=== PATIENT | born 1950 | race Caucasian/White ===

== ENCOUNTER 2024-05-03 09:55 | Outpatient (CLI) | payer MEDICARE, SELFPAY ==
[2024-05-03 13:24] LABS: Basophils Absolute Auto 0.1 K/mm3 (0.0-0.1); Basophils Percent Auto 0.7 % (0.2-1.2); Eosinophils Absolute Auto 0.1 K/mm3 (0-0.3); Eosinophils Percent Auto 1.4 % (0-4.4); Hematocrit 35.9 % (37.0-52.0); Hemoglobin 12.1 g/dL (12.0-18.0); Immature Granulocyte Absolute 0.02 K/mm3 (0.00-0.031); Immature Granulocyte Percent A 0.3 % (0-0.5); Lymphocytes Absolute Auto 2.94 K/mm3 (0.9-3.2); Lymphocytes Percent Auto 40.7 % (18.3-44.2); Mean Corpuscular HGB Conc 33.7 g/dl (32-36); Mean Corpuscular Hemoglobin 31.2 pg (26-34); Mean Corpuscular Volume 92.5 fl (80-100); Mean Platelet Volume 11.4 fl (7.4-10.4); Monocytes Absolute Auto 0.6 K/mm3 (0.1-0.6); Monocytes Percent Auto 8.6 % (2.6-8.5); Neutrophils Absolute Auto 3.5 K/mm3 (1.3-6.7); Neutrophils Percent Auto 48.3 % (45.5-73.1); Platelet Count Result 158 k/mm3 (150-375); Red Blood Count 3.88 M/mm3 (4.2-6.2); Red Cell Distribution Width 11.9 % (11.5-14.5); White Blood Count 7.2 K/mm3 (4.5-10.0)
[2024-05-03 21:49] LABS: Alanine Aminotransferase 29 U/L (6-50); Albumin Level 4.1 g/dL (3.5-5.1); Alkaline Phosphatase 110 U/L (38-126); Anion Gap 8 mmol/L (4-12); Aspartate Amino Transferase 47 U/L (17-59); Bilirubin,Total 0.9 mg/dL (0.2-1.3); Blood Urea Nitrogen 26 mg/dL (7-20); Calcium 9.2 mg/dL (8.4-10.2); Carbon Dioxide 33 mmol/L (22-30); Chloride 100 mmol/L (96-107); Cholesterol 166 mg/dL (0-200); Estimated Glomerular Filt Rate 35; Glucose 100 mg/dL (65-110); HDL Direct 50 mg/dL; Potassium 3.8 mmol/L (3.4-5.0); Sodium 141 mmol/L (137-145); Triglycerides 80 mg/dL (<150)
[2024-05-03 21:59] LABS: LDL Cholesterol Direct 80 mg/dL
[2024-05-03 22:18] LABS: Prostate Specific Antigen 0.8 ng/mL
== END 2024-05-03 09:56 | disposition home or self-care (01) ==
LOC: ANHGOSHLAB 09:57
PROVIDERS: PCP Nurse Practitioner; Visit Provider Nurse Practitioner
DX: E78.5 Hyperlipidemia, unspecified (principal); I10 Essential (primary) hypertension; Z13.29 Encounter for screening for other suspected endocrine disorder; Z13.220 Encounter for screening for lipoid disorders; Z12.5 Encounter for screening for malignant neoplasm of prostate
CPT/HCPCS: 36415; 80053; 80061; 84153; 85025; G0103

== ENCOUNTER 2024-07-12 11:05 | Outpatient (CLI) | payer MEDICARE, SELFPAY ==
--- NOTE | 2024-07-12 11:26 | EST_ITS ---
Patient Info Name: Noe Webber Age: 73 years : 1950 Gender: Other Ht: 68 in Wt: 200 lbs BSA: 2.11 m2 HR: 79 bpm BP: 127 / 80 mmHg Exam Date: 07/12/2024 11:26 AM Patient Status: unknown Admit Date: 07/12/2024 Exam Type: CA stress test treadmill A treadmill exercise stress test was performed. Staff Attending Provider: Zahraa Fink Exercise Technologist: Iliana Ashford Exercise Physician: Juan Antonio Shaw DO Summary 1. 1. Negative Homero exercise stress test for ischemic ST changes by ECG criteria. 2. 2. Good functional capacity, achieving 7 METS of workload. 3. 3. Appropriate HR response to exercise. 4. 4. Appropriate HR recovery at 1 minute post exercise. 5. 5. No imaging with stress testing. 6. 6. Patient informed of the above results. Protocol: Homero Stress ECG Details Stage: REST Duration (min): 0 min : 51 sec Speed (mph): 0.0 Grade (%): 0 HR (bpm): 79 SBP (mmHg): 127 DBP (mmHg): 80 METS: --- Stage: REST Duration (min): 2 min : 49 sec Speed (mph): 0.0 Grade (%): 0 HR (bpm): 91 SBP (mmHg): 127 DBP (mmHg): 80 METS: --- Stage: STAGE 1 Duration (min): 1 min : 0 sec Speed (mph): 1.7 Grade (%): 10 HR (bpm): 103 SBP (mmHg): 127 DBP (mmHg): 80 METS: --- Stage: STAGE 1 Duration (min): 2 min : 0 sec Speed (mph): 1.7 Grade (%): 10 HR (bpm): 116 SBP (mmHg): 127 DBP (mmHg): 80 METS: --- Stage: STAGE 1 Duration (min): 3 min : 0 sec Speed (mph): 1.7 Grade (%): 10 HR (bpm): 115 SBP (mmHg): 143 DBP (mmHg): 64 METS: --- Stage: STAGE 2 Duration (min): 1 min : 0 sec Speed (mph): 2.5 Grade (%): 12 HR (bpm): 119 SBP (mmHg): 143 DBP (mmHg): 64 METS: --- Stage: STAGE 2 Duration (min): 2 min : 0 sec Speed (mph): 2.5 Grade (%): 12 HR (bpm): 129 SBP (mmHg): 167 DBP (mmHg): 64 METS: --- Stage: STAGE 2 Duration (min): 3 min : 0 sec Speed (mph): 2.5 Grade (%): 12 HR (bpm): 125 SBP (mmHg): 167 DBP (mmHg): 64 METS: --- Stage: RECOVERY Duration (min): 0 min : 59 sec Speed (mph): 0.0 Grade (%): 0 HR (bpm): 123 SBP (mmHg): 155 DBP (mmHg): 62 METS: --- Stage: RECOVERY Duration (min): 1 min : 59 sec Speed (mph): 0.0 Grade (%): 0 HR (bpm): 105 SBP (mmHg): 155 DBP (mmHg): 62 METS: --- Stage: RECOVERY Duration (min): 2 min : 59 sec Speed (mph): 0.0 Grade (%): 0 HR (bpm): 99 SBP (mmHg): 152 DBP (mmHg): 74 METS: --- Stage: RECOVERY Duration (min): 3 min : 4 sec Speed (mph): 0.0 Grade (%): 0 HR (bpm): 98 SBP (mmHg): 152 DBP (mmHg): 74 METS: --- Rest HR: 91 bpm Peak HR: 135 bpm Rest Sys BP: 127 mmHg Peak Sys BP: 167 mmHg Max Pred HR: 145 bpm % Max Pred HR: 93 % Target HR: 123 bpm Max RPP: 22,545 bpm*mmHg Taylor Score: 3 Termination Reason: Reached target heart rate or workload Cardiac Symptoms: Shortness of breath Max ST Seg Deviation: -0.70 mm Total Time: 6 min : 0 sec Rest Rodriguez BP: 80 mmHg Peak Rodriguez BP: 64 mmHg Angina Score: None Total METS: 7.1 Resting ECG Sinus rhythm. Stress ECG No ST changes. Arrhythmias None. Report Signatures
--- OUTSIDE RECORDS SUMMARY | 2024-07-12 11:30 | XMS_ITS ---
Author Organization [facility] Address [address] [place] [address] Care Team Providers Care Network Project Manager Name Role Phone Blade NEWSOME, Isi Primary Care Provider Farhad Larsen REASON FOR VISIT DAC Hx Colon Polyps Medications Medication SIG (Take, Route, Frequency, Duration) Notes Start Date End Date Status amLODIPine Besylate 2.5 MG 1 tablet Orally Once a day; Duration: 30 day(s) 06/06/2022 Active Omeprazole 20 MG 1 capsule 30 minutes before morning meal Orally Once a day; Duration: 30 day(s) 06/06/2022 Active hydroCHLOROthiazide 12.5 MG 1 capsule in the morning Orally Once a day; Duration: 30 day(s) 06/06/2022 Active Atorvastatin Calcium 20 MG Oral once a day Prescriber Name: RAGHU FRANKS 10/11/2018 Active Famotidine 20 MG 1 tablet at bedtime as needed Orally Once a day; Duration: 30 day(s) 06/06/2022 Active escitalopram 20mg Oral Prescriber Nam e: RAGHU FRANKS *[facility]* 10/11/2018 Active Encounters Encounter Location Date Provider Diagnosis [address] [address] 08/03/2023 Farhad Mc Plan Of Treatment No Information Progress Notes * Noe MILAN HDOB:[birth year] (73 yo M)Acc No.[id number]:08/03/2023 Procedure Note Patient: Noe Lynn Provider: Tal Mc MD :1950 A ge:72 Y S ex:Male Date:08/03/2023 Address:[address] [place], [place] [id number] Pcp:Isi michel MD Subjective: * Chief Complaints: * D AC Hx Colon Polyps * Medications: T akingescitalopram 20mg Tablet Oral , Notes to Pharmacist: Prescriber Name: RAGHU FRANKS *Reorder from [facility] for eRx and Interaction Alerts*Atorvastatin Calcium 20 MG Tablet Oral once a day , Notes to Pharmacist: Prescriber Name: RAGHU FRANKShydroCHLOROthiazide 12.5 MG Capsule 1 capsule in the morning Orally Once a day Famotidine 20 MG Tablet 1 tablet at bedtime as needed Orally Once a day amLODIPine Besylate 2.5 MG Tablet 1 tablet Orally Once a day Omeprazole 20 MG Capsule Delayed Release 1 capsule 30 minutes before morning meal Orally Once a day Taking escitalopram 20mg Tablet Oral , Notes to Pharmacist: Prescriber Name: RAGHU FRANKS *Reorder from [facility] for eRx and Interaction Alerts*Taking Atorvastatin Calcium 20 MG Tablet Oral once a day , Notes to Pharmacist: Prescriber Name: RAGHU FRANKSAna hydroCHLOROthiazide 12.5 MG Capsule 1 capsule in the morning Orally Once a day Taking Famotidine 20 MG Tablet 1 tablet at bedtime as needed Orally Once a day Taking amLODIPine Besylate 2.5 MG Tablet 1 tablet Orally Once a day Taking Omeprazole 20 MG Capsule Delayed Release 1 capsule 30 minutes before morning meal Orally Once a day Billing Information: * Procedure Codes: * Electronic signature of Jorge L Mc MD on 07/12/2024 at 12:30 PM EDT Sign off status: Pending * Provider: Tal Mc MD Date: 08/03/2023 Generated for Juan corona/Avani/Mamta on: 07/12/2024 12:30 PM EDT
--- OUTSIDE RECORDS SUMMARY | 2024-07-12 11:30 | XMS_ITS | Patient Health Record ---
Author Organization [facility] Address [address] [address] Care Team Providers Care Sailing Instructor Name Role Phone Blade NEWSOME, Isi Primary Care Provider Farhad Larsen Unavailable Reason For Referral Reason colon Diagnosis 1 History of colon manoj yps (Z86.010) Referral Organization [facility] Referring Provider First Name Tay white Referring Provider Last Name Alexandro Referring Provider Speciality Gastroente rology Referred Organization [facility] Referred Provider [facility] Referred Address [address] [place], [place],[address], Referred Provider Specialty Single Speci alty Group Procedure 1 Colonoscopy w/lesion removal (81940) General Notes Jennifer tam 07/18/2023 02:35:07 AM >[facility];DOS:08/03/2023,Medicare Eff:03/02/2023;DED: $240/0(Rem)OV/PROF/FAC 80%,no auth/ref req;Sec,[employer] -Eff:08/30/2013; called@ [phone] s/w Lusiana As per rep ;plan is active ;No auth or No referral is required and collect: Professional charge:$0,Facility charge:$0,Anesthesia $0;Total Charges: $0,.../PB Referral Priority Routine Medications Medication SIG (Take, Route, Frequency, Duration) Notes Start Date End Date Status amLODIPine Besylate 2.5 MG 1 tablet Orally Once a day; Duration: 30 day(s) 06/06/2022 Active Omeprazole 20 MG 1 capsule 30 minutes before morning meal Orally Once a day; Duration: 30 day(s) 06/06/2022 Active escitalopram 20mg Oral Prescriber Nam e: RAGHU FRANKS *Reorder from [facility] for eRx and Interaction Alerts* 10/11/2018 Active hydroCHLOROthiazide 12.5 MG 1 capsule in the morning Orally Once a day; Duration: 30 day(s) 06/06/2022 Active Atorvastatin Calcium 20 MG Oral once a day Prescriber Name: RAGHU FRANKS 10/11/2018 Active Famotidine 20 MG 1 tablet at bedtime as needed Orally Once a day; Duration: 30 day(s) 06/06/2022 Active Immunizations Vaccine Route Administration Date Status Comme nts COVID19 Unknown 06/18/2020 Administered Status:Preli minary ,Reason:Given or N/A Influenza (split), 3 yrs and above Unknown 11/01/2019 Administered Status:Complete ,Reason:Given or N/A Pneumococcal polysaccharide PPV23 Unknown 03/02/2014 Administered Status:Comp lete ,Reason:Given or N/A Social History Social History Additional Details Category Social Info Options Details Migrated Social History Migrated Social History Problem Title : Alcohol use, Problem Comment : 05/07/2020: Currently drinks 7 or less drinks per week., Problem Status : Active,, Problem Title : Caffeine use, Problem Comment : Drinks 3-5 caffeinated beverages per day., Problem Status : Active,, Problem Title : HIV risk factors, Problem Comment : Has never engaged in high risk behavior for STDs., Problem Status : Active,, Problem Title : Illicit drug use, Problem Comment : Never used IV drugs or other recreational drugs., Problem Status : Active,, Problem Title : Living situation, Problem Comment : does not live alone, Problem Status : Active,, Problem Title : Tobacco use, Problem Comment : 05/07/2020: Never used other tobacco products., Problem Status : Active, Attribute Title : Never smoker Problems Problem Type SNOMED Code ICD Code Onset Dates Problem Status W/U Status Risk Notes Problem Abdominal pain (25904597) Unspecified abdominal pain (R10.9) 9 Active confirmed Problem serum creatinine raised (948757315) Elevated serum creatinine (R79.89) Active confirmed Problem 833816698 History of colon polyps (Z86.010) Active confirmed Problem Obesity (465022449) Obesity with body mass index 30 or greater (E66.9) Active confirmed Problem Overweight (032062566) Body mass index (BMI) of 25.0 to 29.9 (278.02) Active confirmed Encounters Encounter Location Date Provider Diagnosis [facility] [address] [place] [address] 08/03/2023 Farhad Mc [facility] [address] [place] [address] 07/16/2023 Farhad Mc Plan Of Treatment No Information Insurance Providers Payer Name Payer Address Payer Phone Subscriber Number Group Number Insured Name Patient Relationship to Insured Coverage Start Date Coverage End Date [place] Medicare Part B [id number] [address] [address] [place] [address] [id number] Noe Webber Self - patient is the insured 4 [facility] WC[address] [address] [place] [address] [phone] [id number] Noe Webber Self - patient is the insured Medical (General) History Surgical History Surgery Date(Month/Year) Problem Title : Total Hip Replacement, P roblem Status : Active, Problem Title : Gallbladder Surgery, Pro blem Status : Active,
== END 2024-07-12 11:06 | disposition home or self-care (01) ==
LOC: ANHCARD 11:05
PROVIDERS: PCP Nurse Practitioner; Visit Provider Nurse Practitioner
DX: R06.09 Other forms of dyspnea (principal)
CPT/HCPCS: 93017

== ENCOUNTER 2024-08-04 09:06 | Outpatient (CLI) | payer MEDICARE, SELFPAY ==
--- OUTSIDE RECORDS SUMMARY | 2024-08-04 09:40 | XMS_ITS | Continuity of Care Document ---
Author Organization [facility] Address [address] [place] [phone] Phone Care Team Providers Care Senior Warehouse Clerk Name Role Phone Pedro Pereira MD Unavailable Unavail able Allergies, Adverse Reactions, Alerts Substance Reaction Status Criticality No Known Drug Allergies Active No I nformation Advance Directives Directive Yes / No Effective Date File Name No Information Encounters Encounter Description Practice Location Reason(s) For Visit Diagnoses Date Provider Providers Copied on Encounter [facility], [address] [place] [address], [phone] , tel:[phone] [facility] Age-related nuclear cataract, bilateralHypermet ropia, bilateralRegular astigmatism, bilateralEncounte r for examination of eyes and vision without abnormal findingsPresbyopi a Randall Vasquez. [address] [place] [address], [address], [place]. tel:[phone] 1856 Family History Family Member Type Diagnosis Age At Onset Problem (finding) Payers Payer name Insurance type Covered alliance party ID Authoriza tion(s) No Information Social History Type Description Quantity Date Captured Comments Alcohol Use Details Unknown Caffeine Use Details Unknown Tobacco Use Status Never smoker (Never Smoked) Smoking Status Never smoker (Never Smoked) Non-Smoking Tobacco Use Details : No Details Available : No Details Available Sex Male Chief Complaint And Reason For Visit No Information Reason For Referral Reason For Referral No Information History Of Present Illness Encounter Date Complaint History Of Prese nt Illness No Information Functional Status Date Functional Assessmen t No Information Instructions Date Instruction Additional Infor mation Impression/Plan Related to glau. 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 Impression/Plan Related to Refra ctive testing reveals astigmatism. Impression/Plan Related to Refra ctive testing reveals presbyopia. Impression/Plan Related to [facility] vision examination. Impression/Plan Related to [facility] revealed cataract. Assessments Type Assessment Date No Information Patient Care Teams Name Effective Dates (start - stop) Status Members No Information
--- OUTSIDE RECORDS SUMMARY | 2024-08-04 09:41 | XMS_ITS ---
Author Organization [facility] Address [address] [place] [phone] Care Team Providers Care Roofing Machine Tender Name Role Phone Blade NEWSOME, Isi Primary Care Provider Farhad Larsen REASON FOR VISIT DAC Hx Colon Polyps Medications Medication SIG (Take, Route, Frequency, Duration) Notes Start Date End Date Status amLODIPine Besylate 2.5 MG Tablet 1 tablet Orally Once a day; Duration: 30 day(s) 06/06/2022 Active Omeprazole 20 MG Capsule Delayed Release 1 capsule 30 minutes before morning meal Orally Once a day; Duration: 30 day(s) 06/06/2022 Active hydroCHLOROthiazide 12.5 MG Capsule 1 capsule in the morning Orally Once a day; Duration: 30 day(s) 06/06/2022 Active Atorvastatin Calcium 20 MG Tablet Oral once a day Prescriber Name: RAGHU FRANKS 10/11/2018 Active Famotidine 20 MG Tablet 1 tablet at bedtime as needed Orally Once a day; Duration: 30 day(s) 06/06/2022 Active escitalopram 20mg Tablet Oral Prescri trey Name: RAGHU FRANKS *Reorder from [facility] for eRx and Interaction Alerts* 10/11/2018 Active Encounters Encounter Location Date Provider Diagnosis [address] [address] 08/03/2023 Farhad Mc Plan Of Treatment No Information Progress Notes * oNe MILAN HDOB:[birth year] (73 yo M)Acc No.[id number]:08/03/2023 Procedure Note Patient: Noe Lynn Provider: Tal Mc MD :1950 A ge:72 Y S ex:Male Date:08/03/2023 Address:[address] [place], [place] [phone] Pcp:Isi michel MD Subjective: * Chief Complaints: * D AC Hx Colon Polyps * Medications: T akingescitalopram 20mg Tablet Oral , Notes to Pharmacist: Prescriber Name: RAGHU FRANKS *Reorder from [facility] for eRx and Interaction Alerts*Atorvastatin Calcium [...] Pharmacist: Prescriber Name: RAGHU FRANKS *Reorder from [facility] for eRx and Interaction Alerts*Taking Atorvastatin Calcium 20 MG Tablet Oral once a day , Notes to Pharmacist: Prescriber Name: RAGHU FRANKSTa hydroCHLOROthiazide 12.5 MG Capsule 1 capsule in [...] signature of Jorge L Mc MD on 08/04/2024 at 10:40 AM EDT Sign off status: Pending * Provider: Tal Mc MD Date: 08/03/2023 Generated for Juan corona/Avani/Mamta on: 08/04/2024 10:40 AM EDT
--- OUTSIDE RECORDS SUMMARY | 2024-08-04 09:41 | XMS_ITS | Patient Health Record ---
Author Organization [facility] Address [address] [place] [address] Care Team Providers Care Auto Slip Cover Installer Name Role Phone Blade NEWSOME, Isi Primary Care Provider Farhad Larsen Unavailable Reason For Referral No Information Medications Medication SIG (Take, Route, Frequency, Duration) Notes Start Date End Date Status amLODIPine Besylate 2.5 MG Tablet 1 tablet Orally Once a day; Duration: 30 day(s) 06/06/2022 Active Omeprazole 20 MG Capsule Delayed Release 1 capsule 30 minutes before morning meal Orally Once a day; Duration: 30 day(s) 06/06/2022 Active escitalopram 20mg Tablet Oral Prescri trey Name: RAGHU FRANKS *Reorder from [employer] for eRx and Interaction Alerts* 10/11/2018 Active hydroCHLOROthiazide 12.5 MG Capsule 1 capsule [...] W/U Status Risk Notes Problem Abdominal pain (93532815) Unspecified abdominal pain (R10.9) 9 Active confirmed Problem serum creatinine raised (653812836) Elevated serum creatinine (R79.89) Active confirmed Problem Obesity (397432330) Obesity with body mass index 30 or greater (E66.9) Active confirmed Problem Overweight (015264543) Body mass index (BMI) of 25.0 to 29.9 (278.02) Active confirmed Problem History of polyp of colon (situation) (873559490) History of colon polyps (Z86.010) Active confirmed Plan Of Treatment No Information Insurance Providers Payer Name Payer Address Payer Phone Subscriber Number Group Number Insured Name Patient Relationship to Insured Coverage Start Date Coverage End Date [place] Medicare Part B [id number] [address] [address] [place] [address] [id number] Noe Webber Self - patient is the insured 4 [facility] WC[address] [address] [place] [address] [id number] Noe Webber Self - patient is the insured Medical (General) History Surgical History Surgery Date(Month/Year) Problem Title : Total Hip Replacement, P roblem Status : Active, Problem Title : Gallbladder Surgery, Pro blem Status : Active,
--- NOTE | 2024-08-04 14:26 | WPDPFTINT ---
PFT Procedure Performed PFT Procedure Performed Spirometry with Pre/Post Bronchodilator Plethysmography (Lung Vol) Diffusing Cap (DLCO) Flow Vol Loop PFT Interpretation This is a pulmonary function test with pre and post-bronchodilator spirometry, plethysmography and diffusing capacity. The test was performed and results interpreted in accordance with the 2019 and 2005 ATS/ERS Task Force guidelines respectively using the Global Lung Function Initiative-2012 reference equations. Patient demonstrated good effort and cooperation. Reproducibility criteria were met. The quality of the pre bronchodilator spirometry maneuver was Grade A and post bronchodilator spirometry maneuver was Grade A. Findings: Spirometry: The contour the inspiratory and expiratory flow tracing are normal. The pre bronchodilator FVC is 2.96 L, 78% predicted. The pre bronchodilator FEV1 is 2.25 L, 79% predicted. The pre bronchodilator FEV1: FVC ratio 76%. The post bronchodilator FVC is 3.50 L, representing a 19% increase. The post bronchodilator FEV1 is 2.45 L, representing a 9% increase. The post bronchodilator FEV1: FVC ratio 70%. Plethysmography: The total lung capacity is 7.27 L, 109% predicted. The functional residual capacity is 3.93 L, 111% predicted. The residual volume is 3.62 L, 148% predicted. The residual volume: Total lung capacity ratio is 50%. Diffusing capacity: The diffusing capacity unadjusted for hemoglobin and carboxyhemoglobin is 20.9, 87% predicted. The diffusing capacity adjusted for alveolar volume is 3.93, 101% predicted. Impression: The spirometry is normal without evidence of an obstructive abnormality. There is significant improvement after inhaling a single dose of albuterol. The total lung capacity is normal with an increased residual volume and residual volume: Total lung capacity ratio consistent with hyperinflation. The diffusing capacity is normal. There are no prior studies for comparison
== END 2024-08-04 09:07 | disposition home or self-care (01) ==
PROVIDERS: PCP Nurse Practitioner; Visit Provider Nurse Practitioner
DX: R06.02 Shortness of breath (principal)
CPT/HCPCS: 94060; 94726; 94729